=== PATIENT | male | born 1945 | race Caucasian/White ===

== ENCOUNTER 2024-03-13 12:03 | Day surgery (SDC) | payer MEDICARE, MEDICAID ==
[2024-03-13] VITALS (16 sets, daily range): BP systolic 126–185; BP diastolic 62–99; PULSE 83–114; TEMP 97.5–99.4
[~2024-03-13] VITALS: Ht 177.8 cm; Wt 97.8 kg
[~2024-03-13 12:03] MED LIST: ALEVE LIQCAPS PO; AMITRIPTYLINE H25 M1 PO; AMOXICILLIN 50500 MG PO; ANTI-DIARRHEAL2 MG PO; BENADRYL25 M2 PO; COLACE 100100 MG/CAP PO; GERI-LANTA 355355 ML PO; IMDUR 60MG60 MG/TAB PO; LR 1,000 ML IV SCH; NARCAN .4MG0.4 MG/ML IJ; NATURAL E400 IU PO; NORCO 325 MG-51 TAB PO; NORVASC 10MG10 MG PO; PEPCID 20MG TAB20 MG PO; TIROSINT50 MC1 PO; TOPROL XL 50MG50 MG PO; TRICOR145 MG PO; TYLENOL 500MG500 MG PO; ZOFRAN8 MG PO; ZYRTEC 10MG10 MG PO; [UNRECOGNIZED DRUG - OTHER] PO
--- NOTE | 2024-03-13 13:39 | NUR ---
pt to ct per cart. Pt positioned in prone position on ct table. Monitors applied and O2 on at 2l/nc.
--- NOTE | 2024-03-13 13:55 | NUR ---
Guidewire in place per Dr Rivera.
[2024-03-13] MEDS ORDERED: [UNRECOGNIZED DRUG - OTHER] PO (13:56)
[2024-03-13] MEDS ORDERED: MIRALAX PA17 GM/Dose PO (14:20)
[2024-03-13] MEDS ORDERED: Lidocaine PF 2% (20 MG/ML) 5 ML VIAL ONE (14:40)
[2024-03-13] MEDS ORDERED: Ondansetron 4 MG/2 ML VIAL ONE (14:40)
[2024-03-13] MEDS ORDERED: fentaNYL 50 MCG/ML 2 ML VIAL ONE (14:41)
[2024-03-13] MEDS ORDERED: Rocuronium 50 MG/5 ML Multi-Dose VIAL ONE (14:55)
[2024-03-13] MEDS ORDERED: HYDROmorphone 1 MG/1 ML SYRINGE [PACU/SDC ONLY] IV PRN (15:00)
[2024-03-13] MEDS ORDERED: Naloxone 0.4 MG/ML VIAL IV PRN (15:00)
[2024-03-13] MEDS ORDERED: Cetirizine 10 MG TAB PO PRN (15:00)
[2024-03-13] MEDS ORDERED: Hyoscyamine 0.125 MG Sublingual TAB SL PRN (15:00)
[2024-03-13] MEDS ORDERED: Ondansetron 4 MG/2 ML VIAL IV PRN ×2 (15:00)
[2024-03-13] MEDS ORDERED: Morphine 4 MG/ML VIAL IV PRN (15:00)
[2024-03-13] MEDS ORDERED: oxyCODONE 5 MG TAB PO PRN (15:00)
[2024-03-13] MEDS ORDERED: hydrALAZINE 20 MG/ML 1 ML VIAL IV PRN (15:00)
[2024-03-13] MEDS ORDERED: Acetaminophen 325 MG TAB PO PRN (15:00)
[2024-03-13] MEDS ORDERED: fentaNYL 50 MCG/ML 1 ML SYRINGE/VIAL [PACU/SDC ONLY] IV PRN (15:00)
[2024-03-13] MEDS ORDERED: Topical Skin Adhesive 1 EACH (1 ML) TOP ONE (15:47)
[2024-03-13] MEDS ORDERED: Iohexol 350 - 100 ML VIAL URETER -L ONE ×2 (15:47)
[2024-03-13] MEDS ORDERED: dexAMETHasone 10 MG/ML VIAL ONE (15:56)
[2024-03-13] MEDS ORDERED: Acetaminophen 500 MG TAB PO SCH ×2 (15:56→21:00)
[2024-03-13] MEDS ORDERED: NS 1,000 ML IV SCH (16:45)
[2024-03-13] MEDS ORDERED: LR 1,000 ML IV SCH (16:45)
--- NOTE | 2024-03-13 17:10 | NUR ---
PATIENT ADMITED INTO ROOM 345 POSTOP. ORIENTED X2. PATIENT HAS HX OF DEVELOPMENTAL DELAY AND LIVES AT [facility]. FAMILY MEMBER AT BEDSIDE. VSS. NO COMPLAINTS. IV FLUIDS INFUSING VIA PUMP INTO LEFT AC IV. LEFT FLANK SITE X1 IS CD&I WITH GLUE. MENCHACA TO DD WITH SMALL AMOUNTS OF DARK BLOODY URINE NOTED. SCD'S TO BLE. HEAD TO TOE ASSESSMENT COMPLETE. PATIENT RESTING WITH CALL LIGHT IN REACH. BED ALARM ON.
[2024-03-13] MEDS ORDERED: Naloxone 0.4 MG/ML VIAL IM PRN (17:30)
[2024-03-13] MEDS ORDERED: diphenhydrAMINE 25 MG CAP PO PRN (17:30)
[2024-03-13] MEDS ORDERED: Ondansetron 4 MG TAB PO PRN (17:30)
--- NOTE | 2024-03-13 17:55 | NUR ---
PATIENT WAS MOVING AROUND AND B/P CUFF POPPED OFF. RE-APPLIED B/P CUFF. VSS. ORDERED SUPPER TRAY. NO NEEDS AT THIS TIME. CALL LIGHT IN REACH. BED ALARM ON.
[2024-03-13] MEDS ORDERED: Acetaminophen 500 MG TAB PO PRN (20:00)
[2024-03-13] MEDS ORDERED: Docusate Sodium 100 MG CAP PO SCH (21:00)
[2024-03-13] MEDS ORDERED: Amitriptyline 25 MG TAB PO SCH (21:00)
--- NOTE | 2024-03-13 21:30 | NUR ---
PT ALERT & RESTING IN BED. VSS ON ROOM AIR. PT DENIES PAIN. MENCHACA TO DD WITH RED OUTPUT & CLOTS. 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 IVF INFUSING TO LEFT AC. PT DENYING NEEDS. CALL LIGHT IN REACH & BED ALARM ON
[2024-03-14] VITALS (8 sets, daily range): BP systolic 125–178; BP diastolic 65–77; PULSE 78–99; TEMP 98.4–99.6
[2024-03-14] MEDS ORDERED: Famotidine 20 MG TAB PO SCH (09:00)
[2024-03-14] MEDS ORDERED: Polyethylene Glycol 3350 17 GM PDS PO SCH (09:00)
[2024-03-14] MEDS ORDERED: amLODIPine 10 MG TAB PO SCH (09:00)
[2024-03-14] MEDS ORDERED: Isosorbide Mononitrate CR (24-HR) 60 MG TAB PO SCH (09:00)
[2024-03-14] MEDS ORDERED: Fenofibrate (Tricor) 145 MG **** subs to Fenofibrate (Lofibra) 162 MG PO SCH (09:00)
[2024-03-14] MEDS ORDERED: Fenofibrate 54 MG TABLET PO SCH (09:00)
--- NOTE | 2024-03-14 09:50 | NUR ---
DC'D MENCHACA PER UROLOGY ORDERS. PATIENT TOLERATED WELL. NOTED 950CC OF RED-TINGED URINE WITH SOME SEDIMENT NOTED. PATIENT STARTED ON 4 CUP ROUTINE, WILL MONITOR. URINAL AT BEDSIDE.
--- NOTE | 2024-03-14 12:55 | NUR ---
TERRY notified by nurse that patient is from facility in [place]. TERRY called patient's brother Lamont ([phone]) three times to discuss patient's return to facility. Phone would ring three times and hang up. TERRY called patient's phone number and spoke with TRISTIN at [facility]. She stated their transport has been on standby to come pick patient up for return to [facility]. TERRY faxed clinicals and discharge orders to [facility]. Discharge plan : return to [facility]
--- NOTE | 2024-03-14 13:00 | NUR ---
ROUNDED, PATIENT CLEARED TO DISCHARGE BACK TO FACILITY, SEE ORDERS. METAL PAINTER TO NOTIFY FACILITY. DC'D LEFT AC IV AND COVERED SITE WITH GAUZE [employer] COBAN. PATIENT ASSISTED TO GET DRESSED. LUNCH AT BEDSIDE.
--- NOTE | 2024-03-14 13:41 | NUR ---
SARANYA HINTON WITH [facility] IS HERE TO MERCHANDISING LEAD PATIENT WHO LIVES THERE. GAVE DISCHARGE INSTRUCTIONS TO STAFF, GAVE RN NAME & NUMBER WITH ANY QUESTIONS. PATIENT IS DRESSED, PACKED & DISCHARGE.
== END 2024-03-14 13:41 | disposition home or self-care (01) ==
LOC: SDCO 12:03 → SURG 17:10 → SDCO 03-14 13:41
DX: N20.0 Calculus of kidney (principal)
CPT/HCPCS: OP; A4314; C1726; C1769; C1894; J0690; J1100; J2405; J2704; J3010; J7030; J7120; Q9967